=== PATIENT | female | born 1990 | race Caucasian/White ===

== ENCOUNTER 2018-10-07 11:50 | Observation (INO) ==
[2018-10-07] MEDS ORDERED: *HR* HYDROmorphone 2 MG/ML SYRINGE IVP PRN (13:51)
[2018-10-07] MEDS ORDERED: Ondansetron 4 MG/2 ML VIAL IVP PRN ×2 (13:52→21:28)
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
[2018-10-07] MEDS ORDERED: 0.9 % Sodium Chloride 1,000 ML IVC SCH ×2 (14:00→21:28)
--- NOTE | 2018-10-07 17:02 | Anesthesia Evaluation PreOp ---
Date of Encounter: 10/07/18 Time of Encounter: 17:00 - Past History Planned Operation: Lap. 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: Other (Bipolar, Depression) Other Medical History: Denies Any Significant HX Anesthesia History: No Prior Anesthetic Complications, Past Anesthesia (tubal) : No Test: Negative (10/07/2018) Alcohol Use: none Drug use: marijuana Medications and Allergies Citalopram [CeleXA] 20 mg PO DAILY 10/07/18 [History] Loratadine [Children's Allergy Relief] 5 mg PO DAILY 10/07/18 [History] Allergy/AdvReac Type Severity Reaction Status Date / Time Amoxicillin [From Augmentin] Allergy Anaphylaxis Verified 07/26/15 08:54 clavulanic acid Allergy Anaphylaxis Verified 07/26/15 08:54 [From Augmentin] - Meds/Allergy Pre-op Review Medications Reviewed: Yes Allergies Reviewed: Yes Beta Blockers on Current Med List: No Anesthesia Results - Labs Laboratory Tests 10/07/18 10/07/18 10:09 10:09 WBC 8.5 Hgb 14.9 Hct 41.9 Plt Count 190 Sodium 134 L Potassium 3.8 Chloride 101 Carbon Dioxide 27 BUN 15 Creatinine 0.61 Glucose 101 Anesthesia Exam Vital Signs/O2 Sat, Most Current Temp Pulse Resp BP Pulse Ox 97.7 F 57 15 96/61 95 10/07/18 14:23 10/07/18 14:23 10/07/18 14:23 10/07/18 14:23 10/07/18 14:23 NPO (# of Hours): > 8 hrs Pain Scale: 0 Pain Scale Used: Numeric (1 - 10) - HEENT Pupil (Motor): Pupils equal, EOMI Mallampati: II Teeth: Normal Oral Opening: Greater than 3 - MOBILE MECH[employer]IC LOC: Oriented MOBILE MECH[employer]IC Motor: Normal RUE, Normal LUE, Normal RLE, Normal LLE, Normal Face [employer]LE [employer] Sensory: Normal: RUE, LUE, RLE, LLE, Face - Cardiac Rhythm: Regular Murmur: None JVD: No Carotid Bruit: No - Pulmonary Breath Sounds: bilateral Clear Respiratory Effort: Symmetrical Anesthesia Assess/Plan ASA Score: 2 Level of consciousness: Cooperative Anesthetic Plan: General Reason for No Neuroaxial/Regional Block: Medication contraindications Monitoring Plan: Standard Monitors Recovery Plan: PACU
[2018-10-07] MEDS ORDERED: Bupivacaine/EPI 1:200k 0.5%PF 10 ML VIAL ONE (18:18)
[2018-10-07] MEDS ORDERED: Isovue-300 50 ML VIAL ONE (18:18)
[2018-10-07] MEDS ORDERED: Dexamethasone 4 MG/ML VIAL ONE ×2 (18:30→19:28)
[2018-10-07] MEDS ORDERED: *HR* Rocuronium Bromide 50 MG/5 ML VIAL ONE (18:30)
[2018-10-07] MEDS ORDERED: Lidocaine -MPF 2% 2 ML VIAL ONE (18:30)
[2018-10-07] MEDS ORDERED: *HR* Succinylcholine 200 MG/10 ML VIAL IVP ONE ×2 (18:30→19:00)
[2018-10-07] MEDS ORDERED: *HR* FentaNYL (PF) 100 MCG/2 ML VIAL ONE ×2 (18:30→20:00)
[2018-10-07] MEDS ORDERED: *HR* Midazolam HCl 2 MG/2 ML VIAL ONE (18:30)
[2018-10-07] MEDS ORDERED: Ondansetron 4 MG/2 ML VIAL ONE (18:30)
[2018-10-07] MEDS ORDERED: *HR* Propofol 200 MG/20 ML VIAL IVP ONE (18:31)
[2018-10-07] MEDS ORDERED: Acetaminophen IV 1,000 MG/100 ML INFUS..BTL ONE (19:06)
[2018-10-07] MEDS ORDERED: *HR* Labetalol 20 MG/4 ML SYRINGE IVP PRN ×2 (19:39→21:28)
[2018-10-07] MEDS ORDERED: *HR* OxyCODONE Immed Rel 5 MG TABLET PO PRN (19:39)
[2018-10-07] MEDS ORDERED: Albuterol 2.5 MG/3 ML NEBULIZER IH ONE ×2 (19:39→21:28)
[2018-10-07] MEDS ORDERED: *HR* Promethazine 25 MG/ML VIAL IVP PRN ×2 (19:39→21:28)
[2018-10-07] MEDS ORDERED: Ondansetron 4 MG/2 ML VIAL IVP ONE (19:39)
[2018-10-07] MEDS ORDERED: Neostigmine Methylsulfate 3 MG/3 ML SYRINGE ONE (20:40)
--- NOTE | 2018-10-07 20:42 | Operative Note ---
Date of procedure: 10/07/18 Pre-op diagnosis: acute cholecystitis Post-op diagnosis: same Procedure: Laparoscopic cholecystectomy Anesthesia: GETA Surgeon: Geoff Ruiz Was there an research program assistant present: Yes Technical Service Rep: Carol Nicole Estimated blood loss (cc): 50 Specimen: gallbladder Condition: stable Disposition: PACU Procedure in Detail: This 28 year-old female was taken to the operating room and placed in the supine position. The anterior abdominal wall is prepped and draped in the usual sterile fashion. A 1-2 cm curvilinear incision is made in the infraumbilical area and subcutaneous tissue was dissected down to anterior rectus fascia. Fascia is grasped with a Hammad clamp, stay sutures were placed in the fascia is divided. Posterior rectus fascia and peritoneum were elevated and divided in the same manner. Under direct visualization after the injection of 0.5% Marcaine the x3 5 mm ports are inserted in the right subcostal space under direct visualization. The patient is placed in reverse Trendelenburg position and rotated to the left. The gallbladder is grasped and retracted in cephalad direction. It is also grasped and retracted in the lateral direction. The cystic duct was carefully identified circumferentially dissected. It was too dilated for clips and so a 45 endo AURA was used to staple across it. The cystic artery is carefully identified and circumferentially dissected and divided between clips. The gallbladder is dissected off the liver bed using electrocautery. Hemostasis was perfected using electrocautery. The gallbladder is removed from the intra-abdominal cavity using an Endo Catch bag. Copious irrigation is carried out in the intra-abdominal cavity, Allred's pouch and the gallbladder fossa. The pneumoperitoneum was allowed to escape under direct visualization. The ports were removed also under direct visualization. The fascia at the infraumbilical incision is closed using 0 Vicryl sutures. All skin incisions are closed using 4-0 Monocryl subcuticular stitches. Steri-S trips are placed. Sterile dressing is placed. Patient tolerated procedure well was taken to the PACU in good condition.
--- NOTE | 2018-10-07 20:49 | Discharge Summary ---
Date of Encounter: 10/07/18 Time of Encounter: 20:45 - Discharge Diagnosis (1) Acute cholecystitis Priority: Primary Status: Acute (2) S/P laparoscopic cholecystectomy Priority: Primary Status: Acute General Surgery Exam Initial Vital Signs Temp Pulse Resp BP Pulse Ox 97.7 F 57 15 96/61 95 10/07/18 14:23 10/07/18 14:23 10/07/18 14:23 10/07/18 14:23 10/07/18 14:23 - Hospital Course Hospital course: Ms. Salmon is a 28 year old female - Time Spent with Patient Total time spent providing and/or coordinating discharge services: - Discharge Medications Prescriptions: Continued Citalopram [CeleXA] 20 mg PO DAILY Loratadine [Children's Allergy Relief] 5 mg PO DAILY Home Medications: Citalopram [CeleXA] 20 mg PO DAILY 10/07/18 [History] Loratadine [Children's Allergy Relief] 5 mg PO DAILY 10/07/18 [History] Allergies/Adverse Reactions: Allergy/AdvReac Type Severity Reaction Status Date / Time Amoxicillin [From Augmentin] Allergy Anaphylaxis Verified 07/26/15 08:54 clavulanic acid Allergy Anaphylaxis Verified 07/26/15 08:54 [From Augmentin] Date of admission: 10/07/18 13:13 Primary care physician: Mary Daily CNP Discharging clinician: Geoff Ruiz (F/U 4 weeks with [facility] clinic) Anticipated date of discharge: 10/08/18 - Patient Status Disposition: Home, Self-Care Condition: Good Functional capacity at discharge: independent ambulation Overall status at discharge: patient is back to baseline - Discharge Instructions Instructions: Laparoscopic Cholecystectomy (DC) Follow Up With: Mary Daily CNP [Primary Care Provider] - Mahogany Salguero CNP [Advanced Practice Nurse] - 10/24/18 8:15 am - Diet and Activity Activity: other (no heavy lifting >25 lbs) Diet: advance to your usual diet
[2018-10-07] MEDS: *HR* HYDROmorphone (PF) 1 MG/ML SYRINGE IVP PRN ×2 (20:52→21:05)
[2018-10-07] MEDS ORDERED: *HR* OxyCODONE/APAP 5/325 TABLET PO PRN (20:58)
[2018-10-07] MEDS ORDERED: Ringers Solution, Lactated 1,000 ML ONE (21:01)
[2018-10-07] MEDS: *HR* OxyCODONE/APAP 5/325 TABLET PO PRN (22:32)
--- NOTE | 2018-10-07 22:37 | Anesthesia Evaluation Post Op ---
Date of Encounter: 10/07/18 Time of Encounter: 21:20 - Vital Signs Vital Signs: Vital Signs/O2 Sat, Most Current Temp Pulse Resp BP Pulse Ox 98 F 61 18 102/67 94 10/07/18 21:55 10/07/18 21:55 10/07/18 21:55 10/07/18 21:55 10/07/18 21:55 - Lungs Lungs: Clear Ascult./Percussion - Airway Airway: Non-obstructed - Cardiovascular Regular Rate - Mental Status Mental Status: Alert & Oriented, Answers Appropriately - Pain Pain Scale: 0 Pain Scale used: Numeric (1 - 10) - Nausea Vomiting Nausea Vomiting: Not Present - Hydration Hydration: Ice chips, Has not voided - Discharge PostOp Status: Transfer Patient to floor
[2018-10-08] MEDS ORDERED: Ketorolac 15 MG/ML VIAL IVP SCH
[2018-10-08] MEDS: Ketorolac 15 MG/ML VIAL IVP SCH ×2 (01:22→06:48)
[2018-10-08] MEDS ORDERED: Acetaminophen IV 1,000 MG/100 ML INFUS..BTL IVPB PRN (03:13)
[2018-10-08] MEDS: *HR* OxyCODONE/APAP 5/325 TABLET PO PRN (06:47)
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
[2018-10-08] MEDS ORDERED: Loratadine 10 MG TABLET PO SCH (09:00)
[2018-10-08 10:01] VITALS: BP 108/68
== END 2018-10-08 12:27 | disposition home or self-care (01) ==
LOC: 3ANU
PROVIDERS: ADMIT Surgery; ATTEND Surgery